=== PATIENT | male | born 1945 | race Caucasian/White ===

== ENCOUNTER 2017-06-26 07:41 | Outpatient (CLI) | payer MEDICARE, BC | END 2017-06-26 07:42 | disposition home or self-care (01) | LOC: BICCT 07:41 | DX: K43.9 Ventral hernia without obstruction or gangrene (principal); R16.1 Splenomegaly, not elsewhere classified; Z94.0 Kidney transplant status | CPT/HCPCS: 74176 ==

== ENCOUNTER 2018-02-23 09:39 | Observation (INO) | payer MEDICARE, BC ==
--- NOTE | 2018-02-23 11:06 | RAD ---
RIGHT HAND 3 VIEWS: Date: 02/23/18 HISTORY: Injury from trauma FINDINGS: Three views of the right hand demonstrate bandage material over the hand and wrist. There is fairly e xtensive soft tissue swelling over the dorsal aspect of the hand, and particularly over the dorsal as pect of the wrist and distal forearm, with some soft tissue air, evidence for associated laceration. There are some arthrosis changes involving the wrist and hand. No evidence for acute fracture or disl ocation. IMPRESSION: Very extensive soft tissue swelling and soft tissue injury, particularly over the dorsal aspect of th e hand and wrist with associated soft tissue gas, evidence for laceration. 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 POS: [facility]
[2018-02-23] MEDS ORDERED: CEFAZOLIN 1 GM VIAL ONE (12:03)
[2018-02-23] MEDS ORDERED: Morphine 2 MG/ML SYRINGE SLOW IVP PRN (12:32)
[2018-02-23] MEDS ORDERED: Acetaminophen 650 MG in Premix Bag 1 BAG IVPB PRN (12:33)
[2018-02-23] MEDS ORDERED: CEFAZOLIN/Water 2 GM/20 ML SYRINGE SLOW IVP SCH (12:45)
[2018-02-23] MEDS ORDERED: Adacel (T-DAP) 0.5 ML SYRINGE ONE (12:48)
[2018-02-23] MEDS ORDERED: Sodium Chloride 0.9% 1,000 ML IV SCH (13:15)
[2018-02-23] MEDS ORDERED: [UNRECOGNIZED DRUG - OTHER] IVPB SCH (13:30)
[2018-02-23] MEDS ORDERED: CEFAZOLIN 2 GM/50 ML-DEXTROSE 2 GM in Premix Bag 1 BAG IVPB SCH (13:30)
[2018-02-23] MEDS ORDERED: ADMIXTURE FEE IVPB SCH ×2 (13:30→13:45)
[2018-02-23] MEDS ORDERED: PENICILLIN POTASSIUM IVPB SCH (13:30)
[2018-02-23] MEDS ORDERED: SODIUM CHLORIDE IVPB SCH (13:45)
[2018-02-23] MEDS ORDERED: GENTAMICIN SULFATE IVPB SCH (13:45)
[2018-02-23 13:50] LABS: Hemoglobin 12.4 g/dL (14.0-18.0); Mean Corpuscular HGB CONC 33.5 g/dL (32.0-36.0); Mean Corpuscular Hemoglobin 30.4 pg (27.0-31.0); Mean Corpuscular Volume 90.8 fL (78.0-98.0); Mean Platelet Volume 9.6 fL (7.4-10.4); Platelet Count 162 thou/uL (130-400); RBC Distribution Width 15.5 % (11.5-14.5); Red Blood Cell (RBC) Count 4.07 mill/uL (4.70-6.10); White Blood Cell (WBC) Count 18.8 thou/uL (4.8-10.8)
--- NOTE | 2018-02-23 13:55 | HP ---
HISTORY OF PRESENT ILLNESS: We were asked by the ER to see the patient. The patient was in his normal state of health today, trying to give a cow a shot, the cow backed into him and pinned his arm on a bar. He pulled his hand out, pulling off the dorsal aspect of his hand skin and he has a little gouge in the back of his hand. It is bleeding well. He has wrapped currently, but we unwrapped it to take a look at it. He has good strength and sensations in that right hand. No laxity in the tendon that I could feel. The patient thinks his tetanus shot is up to date. He had no loss of consciousness and no other injuries during this accident. PAST MEDICAL HISTORY: Positive for GERD. PAST SURGICAL HISTORY: Kidney transplant, hernia, toe surgery, appendectomy, cholecystectomy. ALLERGIES: CELEBREX CAUSES CONSTIPATION. CURRENT MEDICATIONS: 1. Aspirin. 2. Prednisone. 3. Tamsulosin. 4. Pantoprazole. 5. Uloric. 6. Tacrolimus. 7. CellCept. 8. Carvedilol. 9. Vitamin D. FAMILY HISTORY: Healthy. SOCIAL HISTORY: Hector, has a very rare occasional EtOH beverage. No nicotine or illicit drug use. REVIEW OF SYSTEMS: No chest pain or shortness of breath. No bowel or bladder issues, but has had some constipation after certain medications and anesthesia and an ileus after his kidney transplant, but no current symptoms at this time. His only complaint is right hand pain. Rest of review of systems is negative. PHYSICAL EXAMINATION: GENERAL: A well-nourished, well-developed male, alert, pleasant, in no acute distress. Speech is clear. Answers questions appropriately. He is alert and oriented x3. HEENT: Normal exam. Face is symmetric. Tongue is in midline. NECK: Supple. Trachea is in midline. RESPIRATORY: No respiratory distress. Currently, breathing normally. EXTREMITIES: Upper extremities; equal size, shape, symmetry, normal bulk and tone with the exception of his right hand, which was initially bandaged. We removed the bandage and it looks like he took off the whole dorsum part of his hand starting at the base of the digits to about the wrist, he does have a small gouge out of that middle area. It is freely bleeding, but again for his hand, he is moving his hand well. Strengths are intact as are his sensations. Radial and ulnar pulses of upper extremities are equal. Lower extremities; his gait is stable. ASSESSMENT: Right hand degloving injury. PLAN: I spoke with the patient and . The patient will go to the OR. He has to get this washed out, I and D, check the tendons and make sure those are all intact and not damaged and apply a wound VAC. The patient and understand the procedure, which has been explained. They understand Dr. Turner will do this procedure. The patient last ate at 6 o'clock this morning, coffee and pancakes. They are looking into the family as to if his tetanus shot is up to date, and if not, this will need to be updated. Their questions and concerns have been answered. We will get orders put in and get him consented for surgery and send him preop holding. Job ID: [id number] [facility]
[2018-02-23 14:21] LABS: Anisocytosis SLIGHT = 6-15 cells (100X) (0-5/hpf); Band 14 % (5-11); Differential Comment Blast-Like Cell(s); Eosinophils 5 % (0-10); Lymphocytes 10 % (21-51); MDiff Complete? YES; Metamyelocyte 7 % (0-0); Monocytes 15 % (0-10); Myelocyte 5 % (0-0); Neutrophil 40 % (42-75); Nucleated RBC 1 % (0); Ovalocytes SLIGHT = 2-5 cells (100X) (0-1/hpf); Platelet Morphology Comment Appears Adequate; Polychromasia MODERATE = 3-4 cells (100X) (0-2/hpf); Promyelocytes 1 % (0-0); Reactive Lymphocytes 1 % (0-10); Reflex for Review?? YES; Tear Drops SLIGHT = 2-5 cells (100X) (0-1/hpf)
[2018-02-23 15:15] LABS: ALT (SGPT) 16 U/L (8-55); AST (SGOT) 22 U/L (5-34); Albumin 4.2 g/dL (3.4-4.8); Alkaline Phosphatase 54 U/L (40-150); Anion Gap 16 mmol/L (10-20); BUN (Urea Nitrogen) 22 mg/dL (8.4-25.7); Bilirubin, Total 0.7 mg/dL (0.2-1.2); Calc. Creatinine Clearance 0 mL/min (70-130); Calcium 9.5 mg/dL (7.8-10.44); Carbon Dioxide 19 mmol/L (23-31); Chloride 107 mmol/L (98-107); Estimated GFR-MDRD 49; Globulin 2.2 g/dL (2.4-3.5); Glucose 106 mg/dL (83-110); Potassium 4.5 mmol/L (3.5-5.1); Protein, Total 6.4 g/dL (5.8-8.1); Sodium 137 mmol/L (136-145)
[2018-02-23] MEDS ORDERED: Hydrocortisone Sod Succ/PF 100 mg/2 ml Vial ONE ×2 (15:46→18:15)
[2018-02-23] MEDS ORDERED: Ondansetron PF 4 MG/2 ML Vial ONE (15:46)
[2018-02-23] MEDS ORDERED: ePHEDrine/0.9% NaCl/PF SYRINGE 50 mg/10 ml ONE (15:46)
[2018-02-23] MEDS ORDERED: PHENYLEPHRINE-NS 100 MCG/ML 10 ML SYRINGE ONE (15:46)
[2018-02-23] MEDS ORDERED: PROPOFOL 200 MG/20 ML VIAL ONE (15:46)
--- NOTE | 2018-02-23 15:47 | RAD ---
2 VIEWS RIGHT FOREARM: Date: 02/23/18 HISTORY: Right forearm pain. Patient injured by cow this morning with soft tissue injury seen. FINDINGS: AP and lateral views of the right forearm obtained. Images demonstrate a radiopaque foreign body in the soft tissues of the dorsal and medial aspect of t he right forearm soft tissues. No associated fracture is seen in the right radius or ulna. IMPRESSION: Radiopaque foreign body is seen within the soft tissues. POS: [facility]
--- NOTE | 2018-02-23 15:57 | RAD ---
3 VIEWS RIGHT WRIST: Date: 02/23/18 HISTORY: Preoperative evaluation. FINDINGS: There is osteoarthritis involving the first carpometacarpal joint and the metacarpophalangeal joint o f the thumb. No definite acute fracture is seen and there is no dislocation. There is extensive subcu taneous soft tissue swelling, predominantly at the dorsal and to a lesser extent the medial aspect of the right wrist with question of subcutaneous emphysema which may be related to associated laceratio n, although the subcutaneous emphysema is less extensive than on the views of the hand obtained earli er this morning. IMPRESSION: 1. Extensive subcutaneous soft tissue swelling dorsal aspect of forearm and wrist. Subcutaneous emph ysema is less apparent on this exam compared to the prior study, but does persist and is suggestive o f associated laceration. 2. No definite acute fracture is seen involving the right wrist and there is no dislocation seen. POS: [facility]
[2018-02-23] MEDS ORDERED: Bacitracin Zinc Ointment 30 gm TUBE ONE (16:55)
[2018-02-23] MEDS ORDERED: Neomycin-Polymyxin 1 ML AMP ONE (16:55)
[2018-02-23] MEDS ORDERED: Sodium Chloride 0.9% 0 ML ONE (16:55)
[2018-02-23] MEDS ORDERED: Fentanyl 100 MCG/2 ML VIAL ONE ×4 (17:50→20:23)
[2018-02-23] MEDS ORDERED: Thrombin 5000 UNITS/5 ML VIAL ONE (18:53)
[2018-02-23] MEDS ORDERED: Acetaminophen 325 MG TAB PO PRN (19:54)
[2018-02-23] MEDS ORDERED: Morphine 4 MG/ML VIAL SLOW IVP PRN (19:54)
[2018-02-23] MEDS ORDERED: Promethazine HCl 25 MG/ML VIAL IM PRN (19:54)
[2018-02-23] MEDS ORDERED: Milk Of Magnesia 30 ML UDCUP PO PRN (19:54)
[2018-02-23] MEDS ORDERED: Bisacodyl 10 MG SUPP PR PRN (19:54)
[2018-02-23] MEDS ORDERED: traMADol HCl 50 MG TAB PO PRN (19:54)
[2018-02-23] MEDS ORDERED: RENALLY ADJUST ALL ANTIBIOTICS FS SCH (20:00)
[2018-02-23] MEDS ORDERED: HYDROmorphone 2 MG/ML VIAL ONE (20:22)
[2018-02-23] MEDS ORDERED: HYDROmorphone 2 MG/ML VIAL SLOW IVP PRN (20:29)
[2018-02-23] MEDS ORDERED: Non-Formulary Medication 1 EACH PO PRN (20:29)
[2018-02-23] MEDS ORDERED: Promethazine HCl 25 MG/ML VIAL IM/IV PRN (20:29)
[2018-02-23] MEDS ORDERED: Ondansetron HCl/PF 4 MG/2 ML Vial IVP PRN (20:29)
[2018-02-23] MEDS ORDERED: Vancomycin HCl 1 GM in Premix Bag 1 BAG IVPB SCH (20:30)
[2018-02-23] MEDS: HYDROcodone/Acetaminophen 5/325 mg Tablet PO PRN (21:14)
[2018-02-23] MEDS: Sodium Chloride 0.9% 100 ML IV SCH (22:03)
[2018-02-23 22:10] VITALS: BMI 33.3
[2018-02-23] MEDS: Sodium Chloride 0.9% 1,000 ML IV SCH (22:45)
[2018-02-24] MEDS: HYDROcodone/Acetaminophen 5/325 mg Tablet PO PRN ×3 (01:16→13:58)
[2018-02-24 06:56] LABS: Hemoglobin 10.4 g/dL (14.0-18.0); Mean Corpuscular HGB CONC 33.3 g/dL (32.0-36.0); Mean Corpuscular Hemoglobin 30.6 pg (27.0-31.0); Mean Corpuscular Volume 91.8 fL (78.0-98.0); Mean Platelet Volume 8.4 fL (7.4-10.4); Platelet Count 152 thou/uL (130-400); RBC Distribution Width 15.5 % (11.5-14.5); Red Blood Cell (RBC) Count 3.41 mill/uL (4.70-6.10); White Blood Cell (WBC) Count 16.5 thou/uL (4.8-10.8)
[2018-02-24 07:32] LABS: Band 15 % (5-11); Eosinophils 1 % (0-10); Lymphocytes 21 % (21-51); MDiff Complete? YES; Metamyelocyte 4 % (0-0); Monocytes 13 % (0-10); Myelocyte 4 % (0-0); Neutrophil 39 % (42-75); Nucleated RBC 1 % (0); Polychromasia SLIGHT = 2-3 cells (100X) (0-2/hpf); Reactive Lymphocytes 2 % (0-10); Tear Drops MODERATE= 6-15 cells (100X) (0-1/hpf)
--- NOTE | 2018-02-24 08:15 | OP ---
DATE OF PROCEDURE: 02/23/2018 PREOPERATIVE DIAGNOSIS: Hematoma secondary to wound in an outside environment, two 16 cm dorsal and wrist forearm wound with a hematoma and full-thickness skin loss 3 x 2 cm in central distal third. PROCEDURES PERFORMED: 1. Debridement of wound, 11511 with following techniques. a. Instrumentation used was [place] blade, tenotomy scissors, an 11 blade knife, 5 L normal saline, pulse irrigation, with antibiotics inside. b. Excisional technique. c. Depth down to including and opening the retinaculum with some hematoma distally with re-repair. d. There is no gross contamination seen, but there was loss of epidermis over a wide area and dermal and epidermal loss of 3 x 2 cm area full thickness. 2. Application of 2 x 2 Integra graft. 3. Closure of 12 cm wound. 4. Evacuation of hematoma. 5. Application of short-arm splint, right upper extremity. 6. Extensor digitorum communis radical extensor tenosynovectomy for hematoma around the tenosynovium of the extensor tendon. COMPLICATIONS: None. TOURNIQUET TIME: 12 minutes. ESTIMATED BLOOD LOSS: 25 mL including the hematoma. SPECIMEN SENT: Hematoma as listed above. DESCRIPTION OF PROCEDURE: After successful general LMA technique, the limb was prepped and draped. The patient had had time-out done appropriately. We then exsanguinated the limb, inflated the tourniquet to 250 mmHg pressure and it was here that we found out that the patient had a large clot hematoma underneath the skin and we could also visualize the distal 3 cm of the tenosynovium/retinaculum portion that was involved in hematoma. For this reason, we then opened the retinaculum distally, we found only that the distal 4 cm had hematoma and the central portion of the retinaculum over the actual radiocarpal joint, did not. We then evacuated the hematoma here and irrigated. We then performed debridement of the edges of the wound including some epidermis that was lost. By the time, we finished debriding the dermal side, wound was almost 4 cm long x 2.5 cm wide. We then noticed that the proximal portion of the wound, which we extended 3.5 cm had hematoma underneath it, but no main bleeder was seen. So, we evacuated the hematoma here as we did distally. We finished the debridement of the wound edges circumferentially. We inspected, found no gross dirt, no gross contamination and there was no joint involvement, so we decided after the radical extensor tenosynovectomy, hematoma evacuation, and debridement, that we would finish the irrigation and then release the tourniquet. We finished the irrigation after debridement as listed above and then deflated the tourniquet. We inspected , then we placed a thrombin-soaked Gelfoam for 5 minutes over the wound. We then returned, slowly removed the Gel-Foam, closed the wound over 12 of the 16 cm with an interrupted full 3-0 nylon without undue pressure. We closed the retinaculum portion except for the part that had the tenosynovitis giving us almost a 4 cm long strand of retinaculum for stability. We then found that once we did all the closure, there was a small amount of exposed tendon in the center of a 3 x 2 cm wound, so we placed an Integra graft over it with the appropriate side against the tendons, bolstered it with bacitracin Adaptic under staple mineral oil soaked cotton balls, and then the patient had a bulky dressing applied. A splint was applied to prevent motion to allow the tendons underneath to not cause separation of the graft and the patient left the operating room without evidence of anesthetic or operative complication. Job ID: [id number]
[2018-02-24] MEDS ORDERED: TETANUS AND DIPHTHERIA TOX/PF 0.5 ML DISP.SYRIN IM SCH (09:00)
[2018-02-24] MEDS: Sodium Chloride 0.9% 1,000 ML IV SCH ×2 (10:10→17:15)
[2018-02-24] MEDS ORDERED: Vancomycin HCl 1 GM in Premix Bag 1 BAG IVPB SCH (11:00)
[2018-02-24] MEDS ORDERED: Bisacodyl 5 MG TAB PO PRN (11:06)
[2018-02-24] MEDS ORDERED: [UNRECOGNIZED DRUG - REMARK] IVPB PRN (12:23)
[2018-02-24] MEDS ORDERED: Ondansetron ODT 4 MG TAB PO PRN (14:00)
[2018-02-24 22:11] VITALS: BP 152/90; TEMP 97.5
== END 2018-02-24 22:00 | disposition home or self-care (01) ==
LOC: ERS 09:39 → SURG A 20:47 → ERS 21:40 → SURG A 21:41
PROVIDERS: ADMIT Orthopaedic Surgery Hand Surgery; ATTEND Orthopaedic Surgery Hand Surgery
PROC: 0JDJ0ZZ Extraction of Right Hand Subcutaneous Tissue and Fascia, Open Approach (ICD-10-PCS; principal; 2018-02-23)
PROC: 0J9G0ZZ Drainage of Right Lower Arm Subcutaneous Tissue and Fascia, Open Approach (ICD-10-PCS; 2018-02-23)
PROC: 0HRDXK3 Replacement of Right Lower Arm Skin with Nonautologous Tissue Substitute, Full Thickness, External Approach (ICD-10-PCS; 2018-02-23)
DX: S60.211A Contusion of right wrist, initial encounter (principal); S61.501A Unspecified open wound of right wrist, initial encounter; M18.11 Unilateral primary osteoarthritis of first carpometacarpal joint, right hand; K21.9 Gastro-esophageal reflux disease without esophagitis; Z88.6 Allergy status to analgesic agent; Z90.49 Acquired absence of other specified parts of digestive tract; Z94.0 Kidney transplant status; Z79.82 Long term (current) use of aspirin; Z79.2 Long term (current) use of antibiotics; Z79.899 Other long term (current) drug therapy; Z98.890 Other specified postprocedural states; Y93.K9 Activity, other involving animal care
CPT/HCPCS: 15275; 25028; 73090; 73110; 73130; 80053; 85025 ×2; 87070; 87075; 87205; 90471; 90715; 96361 ×2; 96365; 96366; 96367; 96375; 96376 ×2; 99284; C9363; G0378 ×2; 36415; 85060; 96374; J0131; J0690; J1170; J1580; J1720; J2405; J2540; J2704; J3010; J3370; J3490; J7050; Q0162

== ENCOUNTER 2018-03-17 08:43 | Day surgery (SDC) | payer MEDICARE, BC ==
[2018-03-16 14:33] VITALS: BMI 34.5
[2018-03-17] MEDS ORDERED: CEFAZOLIN 2 GM/50 ML BAG ONE (09:28)
[2018-03-17 09:54] LABS: Mean Corpuscular HGB CONC 32.6 g/dL (32.0-36.0); Mean Corpuscular Hemoglobin 29.6 pg (27.0-31.0); Mean Corpuscular Volume 90.6 fL (78.0-98.0); Mean Platelet Volume 8.7 fL (7.4-10.4); Platelet Count 214 thou/uL (130-400); RBC Distribution Width 15.8 % (11.5-14.5)
[2018-03-17 10:17] LABS: Band 9 % (5-11); Eosinophils 2 % (0-10); Lymphocytes 15 % (21-51); MDiff Complete? YES; Metamyelocyte 5 % (0-0); Monocytes 17 % (0-10); Myelocyte 7 % (0-0); Neutrophil 43 % (42-75); Nucleated RBC 1 % (0); Polychromasia MODERATE = 3-4 cells (100X) (0-2/hpf); Reactive Lymphocytes 2 % (0-10); Red Blood Cell (RBC) Count 4.38 mill/uL (4.70-6.10); Tear Drops SLIGHT = 2-5 cells (100X) (0-1/hpf); White Blood Cell (WBC) Count 18.5 thou/uL (4.8-10.8)
[2018-03-17] MEDS ORDERED: Bupivacaine PF 0.5% 30 ML VIAL ONE (14:12)
[2018-03-17] MEDS ORDERED: Sodium Chloride 0.9% 0 ML ONE (14:13)
[2018-03-17] MEDS ORDERED: Bacitracin Zinc Ointment 30 gm TUBE ONE (14:13)
[2018-03-17] MEDS ORDERED: Famotidine/PF 20 mg/2ml Vial ONE (14:30)
[2018-03-17] MEDS ORDERED: Fentanyl 100 MCG/2 ML VIAL ONE ×2 (14:30→16:11)
[2018-03-17] MEDS ORDERED: Thrombin 5000 UNITS/5 ML VIAL ONE (15:21)
[2018-03-17] MEDS ORDERED: Hydrocortisone Sod Succ/PF 100 mg/2 ml Vial ONE (16:22)
[2018-03-17] MEDS ORDERED: Lidocaine 1% PF 5 ML VIAL ONE (16:22)
[2018-03-17] MEDS ORDERED: ePHEDrine 50 MG/ML VIAL ONE (16:22)
[2018-03-17] MEDS ORDERED: Ondansetron PF 4 MG/2 ML Vial ONE (16:22)
[2018-03-17] MEDS ORDERED: PHENYLEPHRINE-NS 100 MCG/ML 10 ML SYRINGE ONE (16:22)
[2018-03-17] MEDS ORDERED: PROPOFOL 200 MG/20 ML VIAL ONE (16:22)
--- NOTE | 2018-03-18 11:11 | OP ---
DATE OF PROCEDURE: 03/17/2018 PREOPERATIVE DIAGNOSIS: 1. Wound nonhealing, right upper extremity with full-thickness skin loss of almost 5.5 x 3.5 cm. 2. Hematoma proximal to this area and the previous incision now closed. 3. The patient is on chronic blood thinners, does not have a reversal agent. PROCEDURE PERFORMED: 1. Evacuation of hematoma, 10 mL to 12 mL of clotted blood in the hematoma at the dorsal distal forearm wound. 2. Split-thickness skin graft, 5 x 3 cm over an area of previous Integra just distal to the hematoma laden wound, no gross infection seen. TOURNIQUET TIME: Zero. ESTIMATED BLOOD LOSS: 20 mL. ANESTHESIA: General LMA technique augmented by 20 mL of 0.5% Marcaine block. DESCRIPTION OF PROCEDURE: After successful anesthesia listed above and the block, limb was not exsanguinated with tourniquet inflated, immediately saw some soft tissue edema under the proximal aspect of the wound, so we opened up 3.5 cm. Here, we found a well-formed hematoma, almost 10 mL to 12 mL. We removed this, irrigated with 1 L of normal saline Pulsavac pressure and then proceeded to the primary wound. Primary wound had no evidence of abnormality. The Integra graft being 100% adhered to the underlying tendon, so we then harvested from the ipsilateral thigh, split-thickness skin graft, depth 0.20 mesh to 1 to 1.5 and then placed this over to 5 x 3 cm area defect. This included covering the entire Integra graft. We held the graft with a bolster and mely, mineral oil, bacitracin, and the bolster itself was a large cotton ball. The patient left the operating room with a bulky dressing, and we closed the area of the hematoma with 3-0 nylon interrupted fashion. No evidence of anesthetic or operative complications. Job ID: [id number]
== END 2018-03-17 17:30 | disposition home or self-care (01) ==
LOC: SDC 08:43
PROVIDERS: ATTEND Orthopaedic Surgery Hand Surgery
PROC: 0HRBX74 Replacement of Right Upper Arm Skin with Autologous Tissue Substitute, Partial Thickness, External Approach (ICD-10-PCS; principal; 2018-03-17)
DX: S41.101A Unspecified open wound of right upper arm, initial encounter (principal); E78.00 Pure hypercholesterolemia, unspecified; I12.9 Hypertensive chronic kidney disease with stage 1 through stage 4 chronic kidney disease, or unspecified chronic kidney disease; N18.9 Chronic kidney disease, unspecified; M10.9 Gout, unspecified; Q60.0 Renal agenesis, unilateral; Z79.51 Long term (current) use of inhaled steroids; Z79.52 Long term (current) use of systemic steroids; Z79.82 Long term (current) use of aspirin; Z79.899 Other long term (current) drug therapy; Z88.6 Allergy status to analgesic agent; Z94.0 Kidney transplant status; Z98.890 Other specified postprocedural states
CPT/HCPCS: 85025; 85652; J0131; J1720; J2001; J2405; J2704; J3010; J3490; S0020; S0028

== ENCOUNTER 2018-09-18 14:37 | Outpatient (CLI) | payer MEDICARE, BC ==
--- NOTE | 2018-09-18 17:26 | CT ---
CT ABDOMEN AND PELVIS WITHOUT CONTRAST; HISTORY: Chronic kidney disease with right-sided abdominal pain. History of kidney transplant. COMPARISON: 06/26/2017 TECHNIQUE: Multiple contiguous axial images were obtained in a CT of the abdomen and pelvis without contrast. S agittal and coronal reformats were performed. FINDINGS: The patient is status post cholecystectomy. The left kidney is atrophic and contains an exophytic hy podensity, which likely represents a cyst. The spleen is enlarged, measuring 22 cm in length. No fo anya liver lesions are seen. The adrenal glands and pancreas are unremarkable, although evaluation is limited without IV contrast. No focal abnormality of the right kidney is seen. There appear to be post surgical changes in the ri ght kidney. There are scattered diverticula in the colon. The small bowel is normal in caliber. Atherosclerotic calcifications are seen in the aorta. No abdominal or pelvic lymphadenopathy is seen . Degenerative changes are seen in the spine. There is stable laxity of the right abdominal wall. The re appears to be intact peritoneal fascia overlying the defect, and this likely represents eventratio n rather than a hernia. The visualized inferior thorax is unremarkable. IMPRESSION: 1. No evidence of acute intraabdominal/pelvic abnormality. 2. Splenomegaly. 3. Small left kidney with left renal cyst. 4. Diverticulosis without evidence of acute diverticulitis. POS: [facility]
== END 2018-09-18 14:38 | disposition home or self-care (01) ==
LOC: BICCT 14:37
PROVIDERS: ATTEND Family Medicine
DX: N18.9 Chronic kidney disease, unspecified (principal); K45.8 Other specified abdominal hernia without obstruction or gangrene; R16.1 Splenomegaly, not elsewhere classified; N28.1 Cyst of kidney, acquired; K57.90 Diverticulosis of intestine, part unspecified, without perforation or abscess without bleeding
CPT/HCPCS: 74176

== ENCOUNTER 2019-01-05 13:27 | Outpatient (CLI) | payer MEDICARE, BC ==
--- NOTE | 2019-01-05 14:07 | BD ---
DEXA BONE DENSITY STUDY: HISTORY: exterminator termite steroid use. LUMBAR SPINE BMD (g/cm2) T-SCORE L1 1.090 +0.2 L2 1.255 +1.5 L3 1.383 +2.5 L4 1.772 +6.2 TOTAL 1.362 +2.5 LEFT FEMORAL NECK 0.776 -1.1 TOTAL 1.174 +0.9 IMPRESSION: 1. Normal bone mineral density of the lumbar spine. 2. Osteopenia of the left femoral neck. 3. The 10 year fracture risk for a major osteoporotic fracture is 5.1% and for a hip fracture is 1.2% . These fracture probabilities are calculated for an untreated patient. POS: [facility]
== END 2019-01-05 13:28 | disposition home or self-care (01) ==
LOC: BICMAMMO 13:27
PROVIDERS: ATTEND Family Medicine
DX: Z13.820 Encounter for screening for osteoporosis (principal); M85.852 Other specified disorders of bone density and structure, left thigh; Z79.52 Long term (current) use of systemic steroids
CPT/HCPCS: 77080

== ENCOUNTER 2019-02-17 08:12 | Day surgery (SDC) | payer MEDICARE, BC ==
[2019-02-16 14:29] VITALS: BMI 33.9
[2019-02-17 08:51] LABS: INR-International Normal Ratio 1.2; PTT 36.4 SEC (22.9-36.1); Prothrombin Time 14.9 SEC (12.0-14.7)
[2019-02-17 08:58] LABS: ALT (SGPT) 16 U/L (8-55); AST (SGOT) 22 U/L (5-34); Albumin 4.1 g/dL (3.4-4.8); Alkaline Phosphatase 59 U/L (40-110); Anion Gap 11 mmol/L (10-20); BUN (Urea Nitrogen) 23 mg/dL (8.4-25.7); Bilirubin, Total 0.8 mg/dL (0.2-1.2); Calc. Creatinine Clearance 60 mL/min (70-130); Calcium 9.7 mg/dL (7.8-10.44); Carbon Dioxide 28 mmol/L (23-31); Chloride 105 mmol/L (98-107); Estimated GFR-MDRD 39; Globulin 2.3 g/dL (2.4-3.5); Glucose 112 mg/dL (83-110); Protein, Total 6.4 g/dL (5.8-8.1); Sodium 139 mmol/L (136-145)
[2019-02-17] MEDS ORDERED: FLU VACC TS2019-20(65YR UP)/PF 180 MCG/0.5 ML SYRINGE IM ONE (09:00)
[2019-02-17 09:20] LABS: Band 29 % (5-11); Eosinophils 1 % (0-10); Hemoglobin 10.6 g/dL (14.0-18.0); Lymphocytes 9 % (21-51); MDiff Complete? YES; Mean Corpuscular HGB CONC 33.7 g/dL (32.0-36.0); Mean Corpuscular Hemoglobin 28.8 pg (27.0-31.0); Mean Corpuscular Volume 85.6 fL (78.0-98.0); Mean Platelet Volume 9.9 fL (7.4-10.4); Metamyelocyte 14 % (0-0); Monocytes 13 % (0-10); Myelocyte 12 % (0-0); Neutrophil 21 % (42-75); Nucleated RBC 2 % (0); Platelet Count 77 thou/uL (130-400); Platelet Morphology Comment Appears Decreased; Polychromasia MODERATE = 3-4 cells (100X) (0-2/hpf); RBC Distribution Width 17.3 % (11.5-14.5); Reactive Lymphocytes 1 % (0-10); Red Blood Cell (RBC) Count 3.67 mill/uL (4.70-6.10); Reflex for Review?? NO; Tear Drops MODERATE= 6-15 cells (100X) (0-1/hpf); White Blood Cell (WBC) Count 17.6 thou/uL (4.8-10.8)
[2019-02-17 09:41] LABS: Ferritin 201.89 ng/mL (22-322); Thyroid Stimulating Hormone 1.4619 uIU/mL (0.35-4.94)
[2019-02-17 10:15] VITALS: BP 142/82; TEMP 96.9
--- NOTE | 2019-02-17 11:00 | CT ---
CT-guided bone marrow aspiration/biopsy HISTORY: Myelofibrosis. FINDINGS: After splenic procedure and answering all questions, limited CT imaging of the pelvis was p erformed with patient prone. Sterile technique, buffered local anesthesia, CT guidance, and a left posterior approach were used to carefully engage and 11-gauge bone biopsy needle into the posterior c ortex of the left iliac bone. Multiple attempts at blood aspiration were unsuccessful. Core specimen was obtained and submitted to pathology for evaluation. Care taken to avoid the sacroiliac j oint. Due to inability to aspirate blood, a second core specimen was obtained and submitted to pathology. Needle was removed. Patient tolerated the procedure well and was eventually dismissed in good conditi on. IMPRESSION: Technically successful CT-guided bone marrow biopsy. Pathology is pending.
== END 2019-02-17 10:45 | disposition home or self-care (01) ==
LOC: CT 08:12
PROVIDERS: ATTEND Internal Medicine Hematology & Oncology
PROC: 07DR3ZX Extraction of Iliac Bone Marrow, Percutaneous Approach, Diagnostic (ICD-10-PCS; principal; 2019-02-17)
DX: D75.81 Myelofibrosis (principal); I12.0 Hypertensive chronic kidney disease with stage 5 chronic kidney disease or end stage renal disease; N18.6 End stage renal disease; G47.33 Obstructive sleep apnea (adult) (pediatric); D72.829 Elevated white blood cell count, unspecified; D69.6 Thrombocytopenia, unspecified; D64.9 Anemia, unspecified; Z88.6 Allergy status to analgesic agent
CPT/HCPCS: 20225; 38221; 77012; 80061; 81270; 82607; 82728; 83036; 85610; 85730; 88184; 88237; 88264; 88280 ×2; 88305; 88311; 88313; 88341; 88342; G0103; 36415; 80053; 84443; 85025

== ENCOUNTER 2019-10-24 07:57 | Emergency (ER) | payer MEDICARE, BC | END 2019-10-24 09:11 | disposition home or self-care (01) | LOC: ERS 07:57 | DX: K64.8 Other hemorrhoids (principal); Z79.82 Long term (current) use of aspirin | CPT/HCPCS: 99283 ==

== ENCOUNTER 2019-11-30 07:58 | Outpatient (CLI) | payer MEDICARE, BC ==
--- NOTE | 2019-11-30 08:27 | ULT ---
Ultrasound of the spleen: 11/30/2019 HISTORY: Evaluate for splenomegaly TECHNIQUE: Multiplanar grayscale sonographic imaging of the left upper quadrant obtained FINDINGS: The spleen is enlarged measuring 23.7 x 11.3 x 11.5 cm. No focal splenic mass lesion noted. IMPRESSION: Prominent splenomegaly as detailed above.
== END 2019-11-30 07:59 | disposition home or self-care (01) ==
LOC: SCSULT 07:58
PROVIDERS: ATTEND Internal Medicine Hematology & Oncology
DX: R16.1 Splenomegaly, not elsewhere classified (principal)
CPT/HCPCS: 76705

== ENCOUNTER 2021-01-15 07:17 | Outpatient (CLI) | payer MEDICARE, BC | END 2021-01-15 07:18 | disposition home or self-care (01) | LOC: CT 07:17 | PROVIDERS: ATTEND Internal Medicine Hematology & Oncology | DX: R63.4 Abnormal weight loss (principal); D75.81 Myelofibrosis; R16.1 Splenomegaly, not elsewhere classified; R18.8 Other ascites; K76.6 Portal hypertension; K76.89 Other specified diseases of liver; K43.9 Ventral hernia without obstruction or gangrene; R19.7 Diarrhea, unspecified; R63.8 Other symptoms and signs concerning food and fluid intake | CPT/HCPCS: 74176 ==

== ENCOUNTER 2021-03-06 08:19 | Day surgery (SDC) | payer MEDICARE, BC ==
[2021-03-06] MEDS ORDERED: diphenhydrAMINE 25 MG CAP ONE (09:02)
[2021-03-06] MEDS ORDERED: Acetaminophen 500 MG TAB ONE (09:02)
[2021-03-06] MEDS ORDERED: Sodium Chloride 0.9% 10 ML ONE (09:02)
[2021-03-06 12:16] VITALS: BP 128/61; TEMP 97.6
== END 2021-03-06 12:17 | disposition home or self-care (01) ==
LOC: ONC/OP 08:19
PROVIDERS: ATTEND Internal Medicine Hematology & Oncology
PROC: 30233N1 Transfusion of Nonautologous Red Blood Cells into Peripheral Vein, Percutaneous Approach (ICD-10-PCS; principal; 2021-03-06)
DX: D64.9 Anemia, unspecified (principal); D69.6 Thrombocytopenia, unspecified; Z88.6 Allergy status to analgesic agent
CPT/HCPCS: 36430; 86850; 86900; 86901; P9016

== ENCOUNTER 2021-04-17 11:30 | Day surgery (SDC) | payer MEDICARE, BC ==
[2021-04-17] MEDS ORDERED: Acetaminophen 500 MG TAB PO PRN (11:38)
[2021-04-17] MEDS ORDERED: Furosemide 20 MG/2 ML VIAL SLOW IVP PRN (11:39)
[2021-04-17] MEDS ORDERED: diphenhydrAMINE 25 MG CAP PO PRN (11:39)
[2021-04-17] MEDS ORDERED: Acetaminophen 500 MG TAB ONE (12:17)
[2021-04-17] MEDS ORDERED: diphenhydrAMINE 25 MG CAP ONE (12:17)
[2021-04-17 14:37] VITALS: TEMP 97.5
[2021-04-17 15:01] VITALS: BP 140/61
[2021-04-17 15:30] LABS: Anisocytosis SLIGHT = 6-15 cells (100X) (0-5/hpf); Band 10 % (5-11); Eosinophils 1 % (0-10); Hemoglobin 6.9 g/dL (14.0-18.0); Lymphocytes 16 % (21-51); MDiff Complete? YES; Mean Corpuscular HGB CONC 32.9 g/dL (32.0-36.0); Mean Corpuscular Hemoglobin 29.5 pg (27.0-31.0); Mean Corpuscular Volume 89.5 fL (78.0-98.0); Mean Platelet Volume 12.7 fL (7.4-10.4); Metamyelocyte 2 % (0-0); Monocytes 8 % (0-10); Myelocyte 5 % (0-0); Neutrophil 56 % (42-75); Nucleated RBC 5 % (0); Platelet Count 32 thou/uL (130-400); Platelet Morphology Comment Appears Decreased; Polychromasia SLIGHT = 2-3 cells (100X) (0-2/hpf); RBC Distribution Width 20.6 % (11.5-14.5); Red Blood Cell (RBC) Count 2.35 mill/uL (4.70-6.10); Tear Drops SLIGHT = 2-5 cells (100X) (0-1/hpf); White Blood Cell (WBC) Count 9.8 thou/uL (4.8-10.8)
== END 2021-04-17 15:01 | disposition home or self-care (01) ==
LOC: ONC/OP 11:30
PROVIDERS: ATTEND Internal Medicine Hematology & Oncology
PROC: 30233N1 Transfusion of Nonautologous Red Blood Cells into Peripheral Vein, Percutaneous Approach (ICD-10-PCS; principal; 2021-04-17)
DX: D64.9 Anemia, unspecified (principal); D69.6 Thrombocytopenia, unspecified; Z88.6 Allergy status to analgesic agent
CPT/HCPCS: 36430; 85025; 86850; 86900; 86901; 96374; J1940; P9016

== ENCOUNTER 2021-06-01 07:55 | Day surgery (SDC) | payer MEDICARE, BC ==
[~2021-06-01 07:55] MED LIST: Acetaminophen 500 MG TAB PO PRN; diphenhydrAMINE 25 MG CAP PO PRN
[2021-06-01] MEDS ORDERED: diphenhydrAMINE 25 MG CAP ONE (08:36)
[2021-06-01] MEDS ORDERED: Acetaminophen 500 MG TAB ONE (08:36)
[2021-06-01 11:39] VITALS: BP 139/67; TEMP 98.2
== END 2021-06-01 11:43 | disposition home or self-care (01) ==
LOC: ONC/OP 07:55
PROVIDERS: ATTEND Internal Medicine Hematology & Oncology
PROC: 30233N1 Transfusion of Nonautologous Red Blood Cells into Peripheral Vein, Percutaneous Approach (ICD-10-PCS; principal; 2021-06-01)
DX: D64.9 Anemia, unspecified (principal); Z88.6 Allergy status to analgesic agent
CPT/HCPCS: 36430; 86850; 86900; 86901; P9016

== ENCOUNTER 2021-06-12 00:11 | Inpatient (IN) | payer MEDICARE, BC ==
[2021-06-12 00:57] LABS: Hemoglobin 6.8 g/dL (14.0-18.0); Mean Corpuscular HGB CONC 32.3 g/dL (32.0-36.0); Mean Corpuscular Hemoglobin 28.4 pg (27.0-31.0); Mean Corpuscular Volume 87.9 fL (78.0-98.0); Mean Platelet Volume 11.7 fL (7.4-10.4); Platelet Count 33 thou/uL (130-400); Red Blood Cell (RBC) Count 2.38 mill/uL (4.70-6.10); White Blood Cell (WBC) Count 8.1 thou/uL (4.8-10.8)
[2021-06-12] MEDS ORDERED: Vancomycin 1 GM/200 ML BAG ONE (01:13)
[2021-06-12] MEDS ORDERED: Cefepime 2 GM VIAL ONE (01:13)
[2021-06-12 01:19] LABS: ALT (SGPT) 15 U/L (8-55); AST (SGOT) 40 U/L (5-34); Albumin 3.1 g/dL (3.4-4.8); Alkaline Phosphatase 71 U/L (40-110); Anion Gap 15 mmol/L (10-20); BUN (Urea Nitrogen) 62 mg/dL (8.4-25.7); Bilirubin, Total 1.5 mg/dL (0.2-1.2); Calc. Creatinine Clearance 0 mL/min (70-130); Calcium 8.7 mg/dL (7.8-10.44); Carbon Dioxide 16 mmol/L (23-31); Chloride 114 mmol/L (98-107); Globulin 1.9 g/dL (2.4-3.5); Glucose 136 mg/dL (83-110); Potassium 3.9 mmol/L (3.5-5.1); Sodium 141 mmol/L (136-145)
[2021-06-12 01:36] LABS: CK (CPK) 32 U/L (30-200); INR-International Normal Ratio 1.6; Lipase 24 U/L (8-78); Magnesium 1.5 mg/dL (1.6-2.6); Prothrombin Time 19.1 sec (12.0-14.7)
[2021-06-12 01:40] LABS: Anisocytosis SLIGHT = 6-15 cells (100X) (0-5/hpf); Band 23 % (5-11); Basophilic Stippling SLIGHT = 1-2 cells (100X) (None Seen); Blast 2 % (0-0); Lymphocytes 14 % (21-51); MDiff Complete? YES; Metamyelocyte 8 % (0-0); Monocytes 8 % (0-10); Myelocyte 3 % (0-0); Neutrophil 39 % (42-75); Platelet Morphology Comment Appears Decreased; Poikilocytosis SLIGHT = 6-15 cells (100X) (0-5/hpf); Reflex for Review?? NO; Tear Drops SLIGHT = 2-5 cells (100X) (0-1/hpf); Toxic Granulation SLIGHT
[2021-06-12 01:53] LABS: CKMB 2.2 ng/mL (0-6.6)
[2021-06-12] MEDS ORDERED: Furosemide 40 MG/4 ML VIAL ONE (02:15)
[2021-06-12] MEDS ORDERED: Magnesium 2 GM/50 ML BAG (IN WATER) ONE (02:15)
[2021-06-12 02:17] LABS: SARS-CoV-2 NAA Rapid Test Not Detected (NotDetected)
[2021-06-12] MEDS ORDERED: Acetaminophen 325 MG TAB ONE (02:34)
[2021-06-12 03:11] LABS: Bilirubin Negative (Negative); Blood, Urine 2+ (Negative); Clarity Turbid (Clear); Glucose, Urine (Dipstick) Normal (Negative); Ketone, Urine Negative (Negative); Leukocyte 500 Leu/uL (Negative); Nitrite Negative (Negative); Protein, Urine (Dipstick) 70 mg/dL (Neg-Trace); Specific Gravity, Urine 1.016 (1.002-1.036); Urobilinogen Normal mg/dL (Less than 2); WBC/HPF Greater than 50 HPF (0-3); pH, Urine 5.5 (5.0-9.0)
[2021-06-12] MEDS ORDERED: Acetaminophen 325 MG TAB PO PRN (03:11)
[2021-06-12] MEDS ORDERED: Ondansetron PF 4 MG/2 ML Vial IVP PRN (03:11)
[2021-06-12 03:16] LABS: Bacteria/HPF 2+ HPF (None Seen); Squamous Epithelial 0-3 HPF (0-3)
[2021-06-12 04:54] VITALS: BMI 35.2
[2021-06-12 04:57] LABS: Hemoglobin 5.9 g/dL (14.0-18.0); Mean Corpuscular HGB CONC 33.3 g/dL (32.0-36.0); Mean Corpuscular Hemoglobin 29.7 pg (27.0-31.0); Mean Corpuscular Volume 89.1 fL (78.0-98.0); Mean Platelet Volume 12.6 fL (7.4-10.4); Platelet Count 26 thou/uL (130-400); RBC Distribution Width 19.1 % (11.5-14.5); White Blood Cell (WBC) Count 10.6 thou/uL (4.8-10.8)
[2021-06-12 05:09] LABS: Anion Gap 13 mmol/L (10-20); BUN (Urea Nitrogen) 63 mg/dL (8.4-25.7); Calc. Creatinine Clearance 34 mL/min (70-130); Calcium 8.4 mg/dL (7.8-10.44); Carbon Dioxide 17 mmol/L (23-31); Chloride 114 mmol/L (98-107); Glucose 146 mg/dL (83-110); Magnesium 1.8 mg/dL (1.6-2.6); Potassium 3.7 mmol/L (3.5-5.1); Sodium 140 mmol/L (136-145)
[2021-06-12 05:15] LABS: Anisocytosis SLIGHT = 6-15 cells (100X) (0-5/hpf); Band 17 % (5-11); Basophilic Stippling SLIGHT = 1-2 cells (100X) (None Seen); Blast 2 % (0-0); Lymphocytes 10 % (21-51); MDiff Complete? YES; Metamyelocyte 6 % (0-0); Monocytes 14 % (0-10); Myelocyte 4 % (0-0); Neutrophil 46 % (42-75); Nucleated RBC 1 % (0); Platelet Morphology Comment Appears Decreased; Poikilocytosis SLIGHT = 6-15 cells (100X) (0-5/hpf); Tear Drops SLIGHT = 2-5 cells (100X) (0-1/hpf)
[2021-06-12 05:18] LABS: Troponin I 2.567 ng/mL (< 0.028)
[2021-06-12] MEDS ORDERED: Vancomycin 1 GM in Premix Bag 1 BAG IVPB SCH (06:00)
[2021-06-12] MEDS ORDERED: Vancomycin DOSE BY LEVEL FS SCH (06:15)
[2021-06-12 07:20] LABS: Troponin I 4.088 ng/mL (< 0.028)
[2021-06-12] MEDS ORDERED: Furosemide 20 MG/2 ML VIAL SLOW IVP SCH (14:00)
[2021-06-12] MEDS: Morphine 2 MG/ML VIAL SLOW IVP PRN (16:21)
[2021-06-12] MEDS: TACROLIMUS 1 MG CAPSULE PO SCH (19:00)
[2021-06-12] MEDS: MYCOPHENOLATE 500 MG PO SCH (19:00)
[2021-06-12] MEDS: TACROLIMUS 0.5 MG CAPSULE PO SCH (19:00)
[2021-06-12] MEDS ORDERED: Mycophenolate 250 MG CAP PO SCH (19:00)
[2021-06-12] MEDS ORDERED: Fenofibrate 48 MG TAB PO SCH (19:00)
[2021-06-12] MEDS: FENOFIBRATE PO SCH (19:00)
[2021-06-12] MEDS ORDERED: Furosemide 40 MG/4 ML VIAL SLOW IVP PRN (22:11)
[2021-06-13] MEDS: Cefepime 2 GM in Sodium Chloride 0.9% 100 ML IVPB SCH (01:08)
[2021-06-13] MEDS: Benzonatate 100 MG CAP PO PRN ×2 (06:00→12:48)
[2021-06-13] MEDS: TAMSULOSIN 0.4 MG CAPSULE PO SCH (06:01)
[2021-06-13] MEDS: PREDNISONE 5 MG TABLET PO SCH (06:02)
[2021-06-13] MEDS: PANTOPRAZOLE 40 MG TABLET PO SCH (06:02)
[2021-06-13] MEDS: MYCOPHENOLATE 500 MG PO SCH ×2 (06:03→18:06)
[2021-06-13] MEDS: TACROLIMUS 1 MG CAPSULE PO SCH ×2 (06:04→18:06)
[2021-06-13] MEDS: TACROLIMUS 0.5 MG CAPSULE PO SCH ×2 (06:06→18:05)
[2021-06-13] MEDS: FEBUXOSTAT 40 MG TABLET PO SCH (06:24)
[2021-06-13] MEDS ORDERED: Tamsulosin HCl 0.4 MG CAP PO SCH (07:00)
[2021-06-13] MEDS ORDERED: Febuxostat 40 MG TAB PO SCH (07:00)
[2021-06-13] MEDS ORDERED: predniSONE 5 MG TAB PO SCH (07:00)
[2021-06-13] MEDS ORDERED: predniSONE 20 MG TAB PO SCH (08:00)
[2021-06-13 10:47] LABS: Hemoglobin 7.3 g/dL (14.0-18.0); Mean Corpuscular HGB CONC 32.2 g/dL (32.0-36.0); Mean Corpuscular Hemoglobin 28.6 pg (27.0-31.0); Mean Corpuscular Volume 88.9 fL (78.0-98.0); Mean Platelet Volume 13.8 fL (7.4-10.4); Platelet Count 29 thou/uL (130-400); RBC Distribution Width 18.6 % (11.5-14.5); Red Blood Cell (RBC) Count 2.54 mill/uL (4.70-6.10); White Blood Cell (WBC) Count 12.6 thou/uL (4.8-10.8)
[2021-06-13 11:03] LABS: Anion Gap 11 mmol/L (10-20); BUN (Urea Nitrogen) 68 mg/dL (8.4-25.7); Calc. Creatinine Clearance 34 mL/min (70-130); Calcium 8.5 mg/dL (7.8-10.44); Carbon Dioxide 18 mmol/L (23-31); Chloride 112 mmol/L (98-107); Glucose 176 mg/dL (83-110); Magnesium 1.7 mg/dL (1.6-2.6); Sodium 137 mmol/L (136-145); Vancomycin, Random 11.2 ug/mL (See Comment)
[2021-06-13 11:40] LABS: Band 22 % (5-11); Eosinophils 1 % (0-10); Lymphocytes 8 % (21-51); MDiff Complete? YES; Metamyelocyte 8 % (0-0); Monocytes 10 % (0-10); Myelocyte 7 % (0-0); Neutrophil 42 % (42-75); Ovalocytes SLIGHT = 2-5 cells (100X) (0-1/hpf); Platelet Morphology Comment Appears Decreased; Polychromasia MODERATE = 3-4 cells (100X) (0-2/hpf); Promyelocytes 1 % (0-0); Reactive Lymphocytes 1 % (0-10); Tear Drops MODERATE= 6-15 cells (100X) (0-1/hpf)
[2021-06-13] MEDS ORDERED: Vancomycin 1 GM in Premix Bag 1 BAG IVPB SCH (11:45)
[2021-06-13] MEDS: FENOFIBRATE PO SCH (18:05)
[2021-06-14] MEDS: Cefepime 2 GM in Sodium Chloride 0.9% 100 ML IVPB SCH (00:59)
[2021-06-14] MEDS: Morphine 2 MG/ML VIAL SLOW IVP PRN (01:00)
[2021-06-14] MEDS: PREDNISONE 5 MG TABLET PO SCH (05:19)
[2021-06-14] MEDS: PANTOPRAZOLE 40 MG TABLET PO SCH (05:19)
[2021-06-14] MEDS: TACROLIMUS 0.5 MG CAPSULE PO SCH ×2 (05:19→18:09)
[2021-06-14] MEDS: MYCOPHENOLATE 500 MG PO SCH ×2 (05:19→18:09)
[2021-06-14] MEDS: TACROLIMUS 1 MG CAPSULE PO SCH ×2 (05:20→18:09)
[2021-06-14] MEDS: FEBUXOSTAT 40 MG TABLET PO SCH (05:20)
[2021-06-14] MEDS: TAMSULOSIN 0.4 MG CAPSULE PO SCH (05:22)
[2021-06-14] MEDS: Benzonatate 100 MG CAP PO PRN (05:25)
[2021-06-14 05:33] LABS: Anisocytosis SLIGHT = 6-15 cells (100X) (0-5/hpf); Band 8 % (5-11); Basophilic Stippling SLIGHT = 1-2 cells (100X) (None Seen); Eosinophils 1 % (0-10); Hemoglobin 7.2 g/dL (14.0-18.0); Hypochromia SLIGHT = 6-15 cells (100X) (0-5/hpf); Lymphocytes 25 % (21-51); MDiff Complete? YES; Mean Corpuscular HGB CONC 31.6 g/dL (32.0-36.0); Mean Corpuscular Hemoglobin 28.5 pg (27.0-31.0); Mean Platelet Volume 13.6 fL (7.4-10.4); Metamyelocyte 15 % (0-0); Monocytes 3 % (0-10); Neutrophil 48 % (42-75); Nucleated RBC 3 % (0); Platelet Count 27 thou/uL (130-400); Platelet Morphology Comment Appears Decreased; Polychromasia SLIGHT = 2-3 cells (100X) (0-2/hpf); RBC Distribution Width 18.6 % (11.5-14.5); Red Blood Cell (RBC) Count 2.53 mill/uL (4.70-6.10); Tear Drops SLIGHT = 2-5 cells (100X) (0-1/hpf); White Blood Cell (WBC) Count 13.7 thou/uL (4.8-10.8)
[2021-06-14 05:34] LABS: Anion Gap 11 mmol/L (10-20); BUN (Urea Nitrogen) 74 mg/dL (8.4-25.7); Calc. Creatinine Clearance 34 mL/min (70-130); Calcium 8.8 mg/dL (7.8-10.44); Carbon Dioxide 19 mmol/L (23-31); Chloride 113 mmol/L (98-107); Glucose 126 mg/dL (83-110); Magnesium 1.8 mg/dL (1.6-2.6); Sodium 139 mmol/L (136-145)
[2021-06-14 05:40] LABS: Troponin I 2.721 ng/mL (< 0.028)
[2021-06-14] MEDS: guaiFENesin/Codeine 200 mg/20 mg 10 ml Cup PO PRN (11:58)
[2021-06-14 12:23] LABS: Vancomycin, Random 15.8 ug/mL (See Comment)
[2021-06-14] MEDS ORDERED: Vancomycin 1 GM in Premix Bag 1 BAG IVPB SCH (13:15)
[2021-06-14] MEDS: Benzonatate 100 MG CAP PO SCH ×2 (15:05→20:13)
[2021-06-14] MEDS: FENOFIBRATE PO SCH (18:08)
[2021-06-14] MEDS: Melatonin 3 MG TAB PO SCH (20:13)
[2021-06-15] MEDS: Cefepime 2 GM in Sodium Chloride 0.9% 100 ML IVPB SCH (00:40)
[2021-06-15] MEDS: guaiFENesin/Codeine 200 mg/20 mg 10 ml Cup PO PRN ×2 (00:40→20:12)
[2021-06-15 04:46] LABS: Anion Gap 10 mmol/L (10-20); BUN (Urea Nitrogen) 77 mg/dL (8.4-25.7); Calc. Creatinine Clearance 34 mL/min (70-130); Calcium 8.8 mg/dL (7.8-10.44); Carbon Dioxide 21 mmol/L (23-31); Chloride 111 mmol/L (98-107); Glucose 129 mg/dL (83-110); Potassium 4.1 mmol/L (3.5-5.1); Sodium 138 mmol/L (136-145)
[2021-06-15 05:42] LABS: Band 24 % (5-11); Hemoglobin 7.7 g/dL (14.0-18.0); Lymphocytes 13 % (21-51); MDiff Complete? YES; Mean Corpuscular HGB CONC 31.6 g/dL (32.0-36.0); Mean Corpuscular Hemoglobin 28.7 pg (27.0-31.0); Mean Corpuscular Volume 90.9 fL (78.0-98.0); Mean Platelet Volume 13.5 fL (7.4-10.4); Metamyelocyte 7 % (0-0); Monocytes 11 % (0-10); Myelocyte 17 % (0-0); Neutrophil 28 % (42-75); Nucleated RBC 1 % (0); Platelet Count 34 thou/uL (130-400); Platelet Morphology Comment Appears Decreased; RBC Distribution Width 18.7 % (11.5-14.5); Red Blood Cell (RBC) Count 2.69 mill/uL (4.70-6.10); White Blood Cell (WBC) Count 24.1 thou/uL (4.8-10.8)
[2021-06-15] MEDS: PANTOPRAZOLE 40 MG TABLET PO SCH (06:19)
[2021-06-15] MEDS: MYCOPHENOLATE 500 MG PO SCH ×2 (06:19→18:30)
[2021-06-15] MEDS: PREDNISONE 5 MG TABLET PO SCH (06:19)
[2021-06-15] MEDS: TACROLIMUS 1 MG CAPSULE PO SCH ×2 (06:20→18:31)
[2021-06-15] MEDS: TAMSULOSIN 0.4 MG CAPSULE PO SCH (06:20)
[2021-06-15] MEDS: TACROLIMUS 0.5 MG CAPSULE PO SCH ×2 (06:20→18:32)
[2021-06-15] MEDS: FEBUXOSTAT 40 MG TABLET PO SCH ×2 (06:21→18:34)
[2021-06-15] MEDS: Benzonatate 100 MG CAP PO SCH ×3 (09:41→20:11)
[2021-06-15] MEDS: Albumin 25% 25 GM/100 ML BOT IVPB SCH ×2 (11:13→15:33)
[2021-06-15 13:26] LABS: Vancomycin, Random 18.9 ug/mL (See Comment)
[2021-06-15] MEDS ORDERED: Vancomycin HCl 750 MG in Sodium Chloride 0.9% 250 ML 250 ML IVPB SCH (16:00)
[2021-06-15] MEDS: FENOFIBRATE PO SCH (18:32)
[2021-06-15] MEDS: Melatonin 3 MG TAB PO SCH (20:11)
[2021-06-15] MEDS: Cefdinir 300 MG CAP PO SCH (20:11)
[2021-06-16] MEDS: TACROLIMUS 1 MG CAPSULE PO SCH (06:24)
[2021-06-16] MEDS: TACROLIMUS 0.5 MG CAPSULE PO SCH (06:25)
[2021-06-16] MEDS: MYCOPHENOLATE 500 MG PO SCH (06:26)
[2021-06-16] MEDS: PANTOPRAZOLE 40 MG TABLET PO SCH (06:27)
[2021-06-16] MEDS: PREDNISONE 5 MG TABLET PO SCH (06:28)
[2021-06-16] MEDS: TAMSULOSIN 0.4 MG CAPSULE PO SCH (06:33)
[2021-06-16] MEDS: Benzonatate 100 MG CAP PO SCH (10:08)
[2021-06-16] MEDS: Cefdinir 300 MG CAP PO SCH (10:09)
[2021-06-16] MEDS: guaiFENesin/Codeine 200 mg/20 mg 10 ml Cup PO PRN (10:09)
[2021-06-16 10:53] VITALS: BP 120/64; TEMP 97
[2021-06-19 11:17] LABS: Tacrolimus 3.9 ng/mL (2.0-20.0)
== END 2021-06-16 14:38 | disposition hospice, home (50) | DRG 871 ==
LOC: ERS 00:11 → 2NO 02:54
PROVIDERS: ADMIT Internal Medicine; ATTEND Internal Medicine
PROC: 3E03329 Introduction of Other Anti-infective into Peripheral Vein, Percutaneous Approach (ICD-10-PCS; principal; 2021-06-12)
PROC: 5A09357 Assistance with Respiratory Ventilation, Less than 24 Consecutive Hours, Continuous Positive Airway Pressure (ICD-10-PCS; 2021-06-12)
PROC: 30233N1 Transfusion of Nonautologous Red Blood Cells into Peripheral Vein, Percutaneous Approach (ICD-10-PCS; 2021-06-12)
DX: A41.9 Sepsis, unspecified organism (principal); J96.01 Acute respiratory failure with hypoxia; I50.33 Acute on chronic diastolic (congestive) heart failure; I21.A1 Myocardial infarction type 2; N39.0 Urinary tract infection, site not specified; N17.9 Acute kidney failure, unspecified; D75.81 Myelofibrosis; Q60.0 Renal agenesis, unilateral; I13.0 Hypertensive heart and chronic kidney disease with heart failure and stage 1 through stage 4 chronic kidney disease, or unspecified chronic kidney disease; K76.6 Portal hypertension; D61.818 Other pancytopenia; T86.19 Other complication of kidney transplant; Z66 Do not resuscitate; Z20.822 Contact with and (suspected) exposure to COVID-19; Z51.5 Encounter for palliative care; R65.20 Severe sepsis without septic shock; N18.30 Chronic kidney disease, stage 3 unspecified; E83.42 Hypomagnesemia; F17.220 Nicotine dependence, chewing tobacco, uncomplicated; D63.1 Anemia in chronic kidney disease; G47.33 Obstructive sleep apnea (adult) (pediatric); Y83.0 Surgical operation with transplant of whole organ as the cause of abnormal reaction of the patient, or of later complication, without mention of misadventure at the time of the procedure; E78.5 Hyperlipidemia, unspecified; M10.9 Gout, unspecified; G47.00 Insomnia, unspecified; Z88.1 Allergy status to other antibiotic agents; Z90.49 Acquired absence of other specified parts of digestive tract; Z79.899 Other long term (current) drug therapy; Z98.890 Other specified postprocedural states; Z82.49 Family history of ischemic heart disease and other diseases of the circulatory system; Z79.52 Long term (current) use of systemic steroids; R30.0 Dysuria
CPT/HCPCS: 36415; 36430; 71045; 74176; 80048; 80053; 80197; 80202; 81001; 81003; 81015; 82550; 82553; 83605; 83690; 83735; 83880; 84443; 84484; 85025; 85610; 85730; 86850; 86900; 86901; 87040; 87077; 87086; 87186; 93005; 94640; 94660; 94760; 96365; 96366; 96367; 96375; J0692; J1940; J2270; J3370; J3475; J3490; J7620; P9016; P9047; U0002